=== PATIENT | male | born 1985 | race African-American/Black ===

== ENCOUNTER 2020-04-08 20:00 | Emergency (ER) | payer OTHER ==
[~2020-04-08] VITALS: Ht 193 cm; Wt 106.6 kg
[2020-04-08] MEDS ORDERED: FLEXERIL PO (21:20)
[2020-04-08] MEDS ORDERED: IBUPROFEN 800800 M1 PO (21:20)
[2020-04-08 21:45] VITALS: BP 141/76
== END 2020-04-08 21:46 | disposition home or self-care (01) ==
LOC: M.ERS 20:00
DX: S16.1XXA Strain of muscle, fascia and tendon at neck level, initial encounter (principal); S46.812A Strain of other muscles, fascia and tendons at shoulder and upper arm level, left arm, initial encounter; J45.909 Unspecified asthma, uncomplicated; F17.210 Nicotine dependence, cigarettes, uncomplicated; V89.2XXA Person injured in unspecified motor-vehicle accident, traffic, initial encounter; Y93.89 Activity, other specified; Y92.89 Other specified places as the place of occurrence of the external cause; Y99.8 Other external cause status